=== PATIENT | male | born 2000 | race African-American/Black ===

== ENCOUNTER 2020-09-30 18:10 | Emergency (ER) | payer MEDICAID, OTHER ==
[~2020-09-30] VITALS: Ht 180.3 cm; Wt 68.4 kg
[2020-09-30 18:50] VITALS: BP 127/90
--- NOTE | 2020-09-30 19:03 | NUR ---
Report from JENNA Lira. Pt care responsibilities assumed.
[2020-09-30 19:07] LABS: BASOPHILS % (AUTO) 1 % (0-1); EOSINOPHILS % (AUTO) 1 % (1-7); LYMPHOCYTES % (AUTO) 34 % (22-44); MEAN CORPUSCULAR HEMOGLOBIN 29.2 pg (27.5-34.5); MEAN CORPUSCULAR HGB CONC 33.3 g/dL (33.2-36.2); MONOCYTES % (AUTO) 14 % (2-9); NEUTROPHILS % (AUTO) 50 % (42-75); PLATELET COUNT 202 x10^3/uL (130-400); RED BLOOD COUNT 4.82 x10^6/uL (4.38-5.82)
[2020-09-30 19:11] LABS: ALANINE AMINOTRANSFERASE 54 U/L (12-78); ALBUMIN 3.7 g/dL (3.4-5.0); ANION GAP 5 mmol/L (5-15); CALCIUM 8.6 mg/dL (8.5-10.1); CHLORIDE 107 mmol/L (98-107); CREATININE 1.15 mg/dL (0.7-1.3); MD NO
[2020-09-30 19:13] LABS: SALICYLATE LEVEL < 1.7 mg/dL (2.8-20.0)
[2020-09-30 19:22] LABS: ALKALINE PHOSPHATASE 62 U/L (45-117); BILIRUBIN,TOTAL 0.2 mg/dL (0.2-1.0); TOTAL PROTEIN 7.8 g/dL (6.4-8.2)
--- NOTE | 2020-09-30 21:37 | NUR ---
PT DISCHARGED, LYING IN BED AWAITING ARRIVAL OF RIDE. ERP WOULD LIKE RIDE TO BE VISUALLY VERIFIED BY STAFF PRIOR TO PT LEAVING. PT ALLOWED TO WAIT IN ROOM TO ENSURE.
== END 2020-09-30 22:08 | disposition home or self-care (01) ==
LOC: ED 19:18
DX: R09.81 Nasal congestion (principal); F23 Brief psychotic disorder; F22 Delusional disorders
CPT/HCPCS: 36415; 80053; 80299; 80320; 80329; 84443; 85025; 99283; G0480